=== PATIENT | male | born 1960 | race Caucasian/White ===

== ENCOUNTER 2023-11-04 11:01 | Outpatient (CLI) | payer OTHER | END 2023-11-04 23:59 | disposition critical access hospital (66) | LOC: EMS 11:01 | DX: M25.512 Pain in left shoulder (principal); S99.911A Unspecified injury of right ankle, initial encounter; W17.89XA Other fall from one level to another, initial encounter; Y92.009 Unspecified place in unspecified non-institutional (private) residence as the place of occurrence of the external cause | CPT/HCPCS: A0425; A0429 ==

== ENCOUNTER 2023-11-04 11:34 | Emergency (ER) | payer OTHER ==
--- NOTE | 2023-11-04 12:09 | ED Physician Documentation ---
History of Present Illness - Stated complaint Stated Complaint: 6FT FALL/RT ANKLE PX - Chief complaint Chief Complaint: Trauma Hd/Nk - History obtained from History obtained from: Patient - Additonal information Additional information: The patient comes to the emergency department chief complaint of right ankle pain and left shoulder pain after a 6 foot fall from scaffolding. The patient states that he was standing with his feet about 6 feet up on a homemade scaffolding, doing some work, when the scaffolding gave way. The patient states the fall happened very quickly but he remembers hitting the ground, which is hard packed dirt. He states that he does not think he hit his head when he impacted the ground. He fell onto his left side and is complaining of some left posterior shoulder pain and right ankle pain. He denies any neck or back pain as far as the spine itself. He states that he is not On any anticoagulants. He denies any hip or other lower extremity pain. No abdominal pain. No difficulty breathing. No other complaints at this time. He is otherwise fairly healthy except for hypertension. PD PAST MEDICAL HISTORY - Past Medical History Past Medical History: No - Past Surgical History Past Surgical History: No - Present Medications Home Medications: Ambulatory Orders Medication Instructions Recorded Confirmed HYDROcod/ACETAM 5/325 [[place] 5/325] 1 - 2 tablet PO Q6H PRN #20 tablet 11/04/23 - Allergies Allergies/Adverse Reactions: Allergies Allergy/AdvReac Type Severity Reaction Status Date / Time codeine AdvReac Nausea Verified 11/04/23 12:45 - Social History Does the pt smoke?: No Smoking Status: Never smoker PD ED PE NORMAL - Vitals Vital signs reviewed: Yes - General General: Alert and oriented X 3, No acute distress, Well developed/nourished - HEENT HEENT: PERRL, EOMI, Moist mucous membranes, Other (Tiny abrasion posterior scalp without edema or skull depression.) - Neck Neck: Supple, no meningeal sign, No bony TTP - Cardiac Cardiac: RRR, No murmur, Strong equal pulses - Respiratory Respiratory: No respiratory distress, Clear bilaterally - Abdomen Abdomen: Soft, Non tender, Non distended - Back Back: No spinal TTP - Derm Derm: Normal color, Warm and dry, No rash - Extremities Extremities: No deformity, Other (Edema with mild deformity approximately 8 cm s uperior to right ankle. Tenderness over area. Tiny superficial abrasion without laceration. No tenderness to palpation left shoulder or left arm. 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 No edema or skin changes. Tenderness palpation left inferior anterior rib cage and left posterior rib cage around the seventh rib level. No external findings otherwise. Results - Vitals Vitals: Oxygen O2 Source Room air - Rads (name of study) Left rib x-ray series with chest Relevant Findings:: Final report received, See rad report (Fourth rib fracture no underlying lung pathology) Right ankle x-ray series Relevant Findings:: Final report received, See rad report (Tibial shaft fracture) Right tib-fib x-ray series Relevant Findings:: Final report received, See rad report (Tibial shaft fracture; proximal fibular fracture.) Procedures - Splint (location) - Minor Right lower extremity Splint applied by: Physician, Nurse Type of splint: Fiberglass, Long leg, Posterior, Stirrup Other: Patient tolerated well, No complications, Neurovascular intact, Good alignment, Crutches provided PD Medical Decision Making - ED course Complexity details: reviewed results, re-evaluated patient, considered differential, d/w patient, d/w family ED course: The patient overall was well-appearing. He was worked up with x-rays initially of the right ankle and tib-fib, which showed a fracture of the distal shaft of the tibia. No ankle fracture or disruption was noted. X-rays were also performed of the left scapula and left ribs with chest. The patient wanted only Advil for pain initially. The tib-fib x-ray also showed a proximal fibular spiral fracture, and the rib x-rays showed a single fourth rib fracture. I discussed the case with Dr. Villegas who reviewed the x-rays and stated that the patient could be put in a posterior mold long-leg with stirrups. This was done. I discussed with the patient that Dr. Villegas has stated he would like to see the patient in clinic within a week and I have given the patient the contact information for the clinic. I have given the patient a prescription to for Vicodin and we have discussed symptomatic management at home, as well as usual indications for return. The patient has been given a pair of crutches and training to use them. Departure - Departure Disposition: 01 Home, Self Care Clinical Impression: Tibia/fibula fracture, shaft Qualifiers: Encounter type: initial encounter Fracture type: closed Laterality: right Qualified Code(s): S82.201A - Unspecified fracture of shaft of right tibia, initial encounter for closed fracture Rib fracture Qualifiers: Encounter type: initial encounter Rib fracture type: single rib Fracture type: closed Laterality: left Qualified Code(s): S22.32XA - Fracture of one rib, left side, initial encounter for closed fracture Condition: Stable Instructions: ED Fx Rib, ED Fx Lower Ext Follow-Up: Andre Villegas MD [Provider Admit Priv/Credential] - Prescriptions: HYDROcod/ACETAM 5/325 [[place] 5/325] 1 - 2 tablet PO Q6H PRN #20 tablet PRN Reason: Pain Comments: Your x-rays of your leg show that you have a fracture through the lower part of your tibia, or "nesbitt bone" and a smaller fracture of the upper part of your fibula, the smaller of your 2 lower leg bones. The orthopedist on-call, Dr. Villegas, has looked at your x-rays and says this is a break that would not be operated on but has recommended the long-leg splint that we have placed today. He does not want you to bear any weight on your leg. They would like to see you in the office either late this week or early next week for casting. Please call their office this afternoon to make an appointment for follow-up. Your shoulder/shoulder blade x-rays were negative. You do have 1 rib fracture of your fourth rib on the left, which is why you have a sore spot there. This will heal on its own and there is really nothing to be done for in the meantime. Please do make sure that at least several times an hour, you are taking deep breaths to help aerate your lungs and prevent formation of pneumonia. A prescription for pain medication has been electronically transmitted to the [facility] pharmacy in [place]. You may take this along with ibuprofen to help with pain. You may also use ice packs on your chest wall where the rib fracture is and you may prop up your right leg when you are sitting or laying down to help with some of the swelling. You should use crutches to get around when you are on your feet. If you have further concerns about your left shoulder, you may br ing those up at your orthopedic appointment when you go in for your leg. Forms: PCP List Discharge Date/Time: 11/04/23 15:25
[2023-11-04] MEDS ORDERED: IBUPROFEN 800 MG TABLET PO STA (12:13)
--- NOTE | 2023-11-04 12:50 | XRAY Report ---
PROCEDURE: Ribs w/PA Chest 3+V LT INDICATIONS: fall/pain TECHNIQUE: 3 views of the left ribs were acquired, along with a single view chest. COMPARISON: None. FINDINGS: Surgical changes and devices: None. Bones and chest wall: Acute fracture of the left fourth rib with mild angulation. Lungs and pleura: No pleural effusions or pneumothorax. Lungs appear clear. Mediastinum: Mediastinal contours appear normal. Heart size is normal. IMPRESSION: Acute fracture of the left fourth rib. Reviewed by: Morgan Patel MD on 11/04/2023 12:49 PM PST Approved by: Morgan Patel MD on 11/04/2023 12:49 PM PST Station ID: [id number]
--- NOTE | 2023-11-04 12:53 | XRAY Report ---
PROCEDURE: Scapula 2V LT INDICATIONS: fall/pain TECHNIQUE: 2 views of the scapula were acquired. COMPARISON: None FINDINGS: Bones: No fractures or dislocations. No suspicious bony lesions. Visualized ribs appear intact. Soft tissues: Overlying soft tissues appear normal. IMPRESSION: No acute abnormality of the left scapula. Reviewed by: Morgan Patel MD on 11/04/2023 12:51 PM [facility] Approved by: Morgan Patel MD on 11/04/2023 12:51 PM [facility] Station ID: [id number]
--- NOTE | 2023-11-04 12:53 | XRAY Report ---
PROCEDURE: Ankle 3+V RT INDICATIONS: fall/injury TECHNIQUE: 3 views of the ankle were acquired. COMPARISON: None. FINDINGS: Bones: Spiral distal tibial shaft fracture, mildly displaced. No fractures or dislocations at the an kle. Ankle mortise is normally aligned. No suspicious bony lesions. Soft tissues: No tibiotalar joint effusion. Achilles tendon appears normal. IMPRESSION: Spiral, mildly displaced distal tibial shaft fracture Reviewed by: Kosta Peck MD on 11/04/2023 12:51 PM PST Approved by: Kosta Peck MD on 11/04/2023 12:51 PM PST Station ID: [id number]
--- NOTE | 2023-11-04 12:54 | XRAY Report ---
PROCEDURE: Tib/Fib RT INDICATIONS: distal tib fx on ankle xr TECHNIQUE: 2 views of the tibia and fibula were acquired. COMPARISON: None. FINDINGS: Bones: Spiral fracture of the distal third of the right tibial diaphysis. Spiral fracture of the pro ximal right fibular diaphysis. Soft tissues: No suspicious soft tissue calcifications or masses. IMPRESSION: Spiral fractures of the right proximal fibula and left distal tibia diaphysis. Reviewed by: Morgan Patel MD on 11/04/2023 12:52 PM PST Approved by: Morgan Patel MD on 11/04/2023 12:52 PM PST Station ID: [id number]
[2023-11-04 13:42] VITALS: BP 154/89
[2023-11-04 15:27] VITALS: O2SAT 98
== END 2023-11-04 15:25 | disposition home or self-care (01) ==
LOC: ED 11:34
DX: S22.32XA Fracture of one rib, left side, initial encounter for closed fracture (principal); S82.831A Other fracture of upper and lower end of right fibula, initial encounter for closed fracture; S82.302A Unspecified fracture of lower end of left tibia, initial encounter for closed fracture; W17.89XA Other fall from one level to another, initial encounter
CPT/HCPCS: 29505; 71101; 73010; 73590; 73610; 99284; A9270